=== PATIENT | female | born 2000 | race Caucasian/White ===

== ENCOUNTER 2019-04-29 16:35 | Emergency (ER) | payer MEDICAID ==
[~2019-04-29] VITALS: Ht 152.4 cm; Wt 59.0 kg
[2019-04-29 16:48] VITALS: BP 124/76
--- NOTE | 2019-04-29 16:58 | NUR ---
Pt c/o vaginal pain, left labia pain & swelling x 4 days. PATIENT STATES PAIN OF 8/10 AT THIS TIME; VSS; PATIENT POSITIONED FOR COMFORT; HOB ELEVATED; BEDRAILS UP X1; BED DOWN. ER MD MADE AWARE OF PT STATUS.
[2019-04-29 17:20] VITALS: BP 117/60
--- NOTE | 2019-04-29 17:20 | NUR ---
Patient discharged with v/s stable. Written and verbal after care instructions given and explained. Patient alert, oriented and verbalized understanding of instructions. Ambulatory with steady gait. All questions addressed prior to discharge. ID band removed. Patient advised to follow up with PMD. Rx of KEFLEX, IBUPROFEN given. Patient educated on indication of medication including possible reaction and side effects. Opportunity to ask questions provided and answered.
== END 2019-04-29 17:20 | disposition home or self-care (01) ==
LOC: MED 16:35
DX: N76.4 Abscess of vulva (principal)
CPT/HCPCS: 99283

== ENCOUNTER 2022-06-29 18:34 | Emergency (ER) | payer MEDICAID ==
[~2022-06-29] VITALS: Ht 152.4 cm; Wt 55.8 kg
[2022-06-29 19:02] VITALS: BP 119/78
--- NOTE | 2022-06-29 19:20 | NUR ---
SEEN AND EXAMINED BY ZACKARY
[2022-06-29 19:30] VITALS: BP 119/78
[2022-06-29] MEDS ORDERED: IBUP-2213 PO (19:47)
--- NOTE | 2022-06-29 20:45 | NUR ---
Patient discharged with v/s stable. NO Written and verbal after care instructions given explained.
[2022-06-29 20:49] LABS: APPEARANCE,URINE CLEAR (CLEAR); BILIRUBIN,URINE NEGATIVE (NEGATIVE); BLOOD, URINE NEGATIVE (NEGATIVE); COLOR,URINE YELLOW (YELLOW); LEUKOCYTE ESTERASE ,URINE 3+ (NEGATIVE); NITRITE, URINE NEGATIVE (NEGATIVE); UGLUCOSE NEGATIVE (NEGATIVE)
[2022-06-29 21:05] LABS: RBC,URINE 0-5 /HPF (0-5)
[2022-06-29 21:06] LABS: TRICHOMONAS,URINE None Seen /HPF (None Seen); YEAST,URINE None Seen /HPF (None Seen)
== END 2022-06-29 20:45 | disposition home or self-care (01) ==
LOC: MED 18:34
DX: M94.0 Chondrocostal junction syndrome [Tietze] (principal)
CPT/HCPCS: 81001; 81025; 87086; 99283